=== PATIENT | female | born 1995 | race Hispanic/Latino ===

== ENCOUNTER 2019-04-15 19:38 | Emergency (ER) | payer MEDICAID, OTHER ==
[2019-04-15] MEDS ORDERED: ACETAMINOPHEN 325 MG TAB ONE (21:08)
== END 2019-04-15 20:09 | disposition home or self-care (01) ==
LOC: EDH 19:38
DX: R07.89 Other chest pain (principal); L29.9 Pruritus, unspecified; R20.0 Anesthesia of skin
CPT/HCPCS: 93005